=== PATIENT | male | born 1985 | race Two or more races ===

== ENCOUNTER 2019-06-17 17:26 | Emergency (ER) | payer MEDICAID ==
[2019-06-17 17:33] VITALS: BP 134/92
--- NOTE | 2019-06-17 17:43 | ED Physician Documentation ---
PD HPI SKIN - Stated complaint Stated Complaint: BUMPS ON BACK OF HEAD/PX - Chief complaint Chief Complaint: Wound - History obtained from History obtained from: Patient - History of Present Illness Timing - onset: How many weeks ago (1-2) Timing - duration: Weeks (couple weeks of some bumps on back of neck, that has popped open and gets some thicker material or green pus out of them. But more come back and has had more pain in the area the past 2-3 days. No general body rash nor sores.) Timing - details: Gradual onset, Still present, Waxing and waning Location: Scalp, Neck (back of neck and up to lower occipital scalp.) Quality / character: Painful, Discolored (red), Swelling, Draining Associated symptoms: No: Fever, Myalgias, Headache, N/V/D Similar symptoms before: Has not had sx before Recently seen: Not recently seen Review of Systems Constitutional: denies: Fever, Chills, Myalgias Nose: denies: Rhinorrhea / runny nose, Congestion Throat: denies: Sore throat Respiratory: denies: Cough Skin: reports: Lesions Neurologic: denies: Altered mental status, Headache PD PAST MEDICAL HISTORY - Past Medical History Cardiovascular: None Respiratory: None Neuro: None Endocrine/Autoimmune: None - Present Medications Home Medications: Ambulatory Orders Medication Instructions Recorded Confirmed Chlorhexidine Gluconate [Hibiclens] 15 ml TP DAILY #236 ml 06/17/19 Doxycycline Hyclate 100 mg PO BID #15 capsule 06/17/19 Mupirocin 1 applic TP TID #15 g 06/17/19 Naproxen 500 mg PO BID #20 tablet 06/17/19 Tramadol HCl 50 mg PO Q6H PRN #15 tablet 06/17/19 - Allergies Allergies/Adverse Reactions: Allergies Allergy/AdvReac Type Severity Reaction Status Date / Time No Known Drug Allergies Allergy Verified 06/17/19 17:29 PD ED PE NORMAL - Vitals Vital signs reviewed: Yes - General General: Alert and oriented X 3, No acute distress, Well developed/nourished - HEENT HEENT: Pharynx benign - Neck Neck: Supple, no meningeal sign, No adenopathy - Cardiac Cardiac: RRR, No murmur - Derm Derm: Normal color, Warm and dry, Other (back of neck and lower occipital area with multiple small bumps less than 1 cm size without any fluctuance. There is mild crusting from some. Redness of the skin. ) Results - Vitals Vitals: Vital Signs - 24 hr 06/17/19 06/17/19 17:29 18:44 Temperature 36.5 C Heart Rate 89 100 Respiratory 16 Rate Blood Pressure 134/92 H O2 Saturation 89 L 98 Oxygen O2 Source Room air PD MEDICAL DECISION MAKING - ED course Complexity details: considered differential (looks likely infected cysts and now local staph extension to several adjacent glands. ), d/w patient Departure - Departure Disposition: 01 Home, Self Care Clinical Impression: Infected sebaceous cyst, Neck pain Condition: Stable Record reviewed to determine appropriate education?: Yes Instructions: ED Cyst Sebaceous Infec Abx Tx Prescriptions: Chlorhexidine Gluconate [Hibiclens] 15 ml TP DAILY #236 ml Doxycycline Hyclate 100 mg PO BID #15 capsule Mupirocin 1 applic TP TID #15 g Naproxen 500 mg PO BID #20 tablet Tramadol HCl 50 mg PO Q6H PRN #15 tablet PRN Reason: Pain Comments: This looks like some infected sweat glands in the back of the neck. Cleanse with soap and water or the antiseptic chlorhexidine as a shampoo type wash and on the skin once or twice daily. Use mupirocin antibiotic ointment to the infection area twice daily. Doxycycline oral antibiotic twice daily for a week. For the neck pain generally, use naproxen anti-inflammatory twice daily and add Tylenol or tramadol if needed for pains. Follow-up with the primary care as soon as you are able to obtain one. Recheck if not improving with the neck infection over the next several days to week. Discharge Date/Time: 06/17/19 18:44
[2019-06-17] MEDS ORDERED: METHOCARBAMOL 500 MG TABLET PO STA (18:12)
[2019-06-17] MEDS ORDERED: NAPROXEN 250 MG TABLET PO STA (18:12)
[2019-06-17] MEDS ORDERED: MUPIROCIN 2% OINT 1 GM TOP STA (18:12)
[2019-06-17] MEDS ORDERED: DOXYCYCLINE 100 MG TABLET PO STA (18:12)
[2019-06-17] MEDS ORDERED: traMADol 50 MG TABLET PO STA (18:13)
== END 2019-06-17 18:44 | disposition home or self-care (01) ==
LOC: ED 17:26
DX: L72.3 Sebaceous cyst (principal); B99.8 Other infectious disease; M54.2 Cervicalgia
CPT/HCPCS: 99284; A9270

== ENCOUNTER 2019-07-02 19:20 | Emergency (ER) | payer MEDICAID ==
--- NOTE | 2019-07-02 21:06 | ED Physician Documentation ---
PD HPI URI - Stated complaint Stated Complaint: CONGESTION/SORE THROAT - Chief complaint Chief Complaint: Heent - History obtained from History obtained from: Patient - History of Present Illness Timing - onset: How many days ago (2-3) Timing duration: Days (2-3) Timing details: Gradual onset, Still present Associated symptoms: Nasal congestion, Sore throat, Dry cough. No: Fever, Hemoptysis, Dyspnea Contributing factors: No: Sick contact, Immunocompromised, COPD / asthma Similar symptoms before: Diagnosis (URI) Review of Systems Constitutional: reports: Chills, Myalgias. denies: Fever Nose: reports: Rhinorrhea / runny nose, Sinus pressure / pain Throat: reports: Sore throat Respiratory: reports: Cough GI: denies: Nausea, Vomiting, Diarrhea Skin: denies: Rash Neurologic: denies: Altered mental status, Headache PD PAST MEDICAL HISTORY - Past Medical History Past Medical History: No Cardiovascular: None Respiratory: None Neuro: None Endocrine/Autoimmune: None GI: None : None HEENT: None Psych: None Musculoskeletal: None Derm: None - Past Surgical History Past Surgical History: Yes - Present Medications Home Medications: Ambulatory Orders Medication Instructions Recorded Confirmed Chlorhexidine Gluconate [Hibiclens] 15 ml TP DAILY #236 ml 06/17/19 Doxycycline Hyclate 100 mg PO BID #15 capsule 06/17/19 Mupirocin 1 applic TP TID #15 g 06/17/19 Naproxen 500 mg PO BID #20 tablet 06/17/19 Tramadol HCl 50 mg PO Q6H PRN #15 tablet 06/17/19 Benzonatate [Tessalon Perle] 100 mg PO TID PRN #30 capsule 07/02/19 Cetirizine [ZyrTEC] 10 mg PO DAILY #15 tablet 07/02/19 dexAMETHasone [Decadron] 4 mg PO DAILY #5 tablet 07/02/19 guaiFENesin/DEXTROMETHORPHAN 10 ml PO Q6H PRN #240 ml 07/02/19 [Robitussin Dm] - Allergies Allergies/Adverse Reactions: Allergies Allergy/AdvReac Type Severity Reaction Status Date / Time No Known Drug Allergies Allergy Verified 07/02/19 19:23 - Social History Does the pt smoke?: Yes Smoking Status: Current every day smoker Does the pt drink ETOH?: No Does the pt have substance abuse?: No - Immunizations Immunizations are current?: Yes - POLST Patient has POLST: No PD ED PE NORMAL - Vitals Vital signs reviewed: Yes - General General: Alert and oriented X 3, No acute distress, Well developed/nourished - HEENT HEENT: Ears normal, Moist mucous membranes, Pharynx benign - Neck Neck: Supple, no meningeal sign, No adenopathy - Cardiac Cardiac: RRR, No murmur - Respiratory Respiratory: Clear bilaterally - Abdomen Abdomen: Soft, Non tender - Back Back: No CVA TTP - Derm Derm: Normal color, Warm and dry - Neuro Neuro: Alert and oriented X 3, No motor deficit, Normal speech Results - Vitals Vitals: Vital Signs - 24 hr 07/02/19 07/02/19 07/02/19 19:23 20:55 21:39 Temperature 36.9 C Heart Rate 87 Respiratory 15 16 16 Rate O2 Saturation 98 Oxygen O2 Source Room air - Labs Labs: Microbiology 07/02/19 20:00 Group A Strep Throat Culture - Preliminary Throat CULTURE IN PROGRESS. RESULTS TO FOLLOW. Laboratory Tests 07/02/19 20:00 Group A Strep Rapid Negative PD MEDICAL DECISION MAKING - ED course Complexity details: considered differential, d/w patient Departure - Departure Disposition: 01 Home, Self Care Clinical Impression: Upper respiratory infection Qualifiers: URI type: unspecified URI Qualified Code(s): J06.9 - Acute upper respiratory infection, unspecified Condition: Stable Record reviewed to determine appropriate education?: Yes Instructions: ED Upper Resp Infec No Abx Tx Prescriptions: Benzonatate [Tessalon Perle] 100 mg PO TID PRN #30 capsule PRN Reason: Cough Cetirizine [ZyrTEC] 10 mg PO DAILY #15 tablet dexAMETHasone [Decadron] 4 mg PO DAILY #5 tablet guaiFENesin/DEXTROMETHORPHAN [Robitussin Dm] 10 ml PO Q6H PRN #240 ml PRN Reason: Cough Comments: Stay well-hydrated. Tylenol ibuprofen if needed for fevers or pains. Use Decadron steroid daily to decrease inflammation of the sinuses and airways. Cetirizine antihistamine daily to decrease congestion. Tessalon for cough suppression and add cough medicine if needed. This should decrease symptoms over the next several days. This sounds like a viral illness and I would anticipate about a week's worth of illness but improving with above medications. Discharge Date/Time: 07/02/19 21:58
[2019-07-02] MEDS ORDERED: BENZONATATE 100 MG CAPSULE PO STA (21:32)
[2019-07-02] MEDS ORDERED: CETIRIZINE 10 MG TABLET PO STA (21:32)
[2019-07-02] MEDS ORDERED: DEXAMETHASONE 10 MG/ML VIAL PO STA (21:32)
[2019-07-02] MEDS ORDERED: ACETAMINOPHEN 325 MG TABLET PO STA (21:32)
[2019-07-02] MEDS ORDERED: CHERRY SYRUP 10 ML UDC PO ONE (21:32)
== END 2019-07-02 21:58 | disposition home or self-care (01) ==
LOC: ED 19:20
DX: J06.9 Acute upper respiratory infection, unspecified (principal); F17.200 Nicotine dependence, unspecified, uncomplicated
CPT/HCPCS: 87070; 87430; 99283; A9270

== ENCOUNTER 2019-12-15 16:48 | Emergency (ER) | payer BC, MEDICAID ==
[2019-12-15 16:55] VITALS: BP 150/100
--- NOTE | 2019-12-15 17:06 | ED Physician Documentation ---
PD HPI HEENT - Stated complaint Stated Complaint: SOA, COUGH, SORE THROAT - Chief complaint Chief Complaint: Resp - History obtained from History obtained from: Patient - History of Present Illness Timing - onset: Other (34-year-old gentleman just quit smoking a few days ago. He has been sick for about a week with minimally productive cough and some chest heaviness as well as a sore throat especially when he coughs. His and children have been sick with a similar syndrome. No fevers. No recent travel. No sick contacts other than his family.) Review of Systems Constitutional: denies: Fever, Chills Nose: denies: Rhinorrhea / runny nose Throat: reports: Sore throat Respiratory: reports: Cough. denies: Dyspnea GI: denies: Abdominal Pain PD PAST MEDICAL HISTORY - Past Medical History Cardiovascular: None Respiratory: None Neuro: None Endocrine/Autoimmune: None GI: None : None HEENT: None Psych: None Musculoskeletal: None Derm: None - Past Surgical History Past Surgical History: Yes - Present Medications Home Medications: Ambulatory Orders Medication Instructions Recorded Confirmed Chlorhexidine Gluconate [Hibiclens] 15 ml TP DAILY #236 ml 06/17/19 Doxycycline Hyclate 100 mg PO BID #15 capsule 06/17/19 Mupirocin 1 applic TP TID #15 g 06/17/19 Naproxen 500 mg PO BID #20 tablet 06/17/19 Tramadol HCl 50 mg PO Q6H PRN #15 tablet 06/17/19 Benzonatate [Tessalon Perle] 100 mg PO TID PRN #30 capsule 07/02/19 Cetirizine [ZyrTEC] 10 mg PO DAILY #15 tablet 07/02/19 dexAMETHasone [Decadron] 4 mg PO DAILY #5 tablet 07/02/19 guaiFENesin/DEXTROMETHORPHAN 10 ml PO Q6H PRN #240 ml 07/02/19 [Robitussin Dm] Albuterol Sulf [Ventolin Hfa 1 - 2 puffs INH Q4HR PRN #1 inhaler 12/15/19 Inhaler] Guaifenesin/Pseudoephedrne HCl 1 each PO BID PRN #20 tab.er.12h 12/15/19 [Mucinex D ER 600-60 mg Tablet] guaiFENesin/CODEINE [Robitussin AC] 5 - 10 ml PO Q6H PRN #120 ml 12/15/19 - Allergies Allergies/Adverse Reactions: Allergies Allergy/AdvReac Type Severity Reaction Status Date / Time No Known Drug Allergies Allergy Verified 12/15/19 16:51 - Social History Does the pt smoke?: Yes Smoking Status: Current every day smoker Does the pt drink ETOH?: No Does the pt have substance abuse?: No - Immunizations Immunizations are current?: Yes - POLST Patient has POLST: No PD ED PE NORMAL - Vitals Vital signs reviewed: Yes - General General: Alert and oriented X 3, No acute distress - HEENT HEENT: Ears normal, Pharynx benign - Neck Neck: Supple, no meningeal sign, No bony TTP - Cardiac Cardiac: RRR, No murmur - Respiratory Respiratory: No respiratory distress, Clear bilaterally - Abdomen Abdomen: Non tender - Back Back: No CVA TTP, No spinal TTP - Derm Derm: Normal color, Warm and dry - Extremities Extremities: No edema, No calf tenderness / cord - Neuro Neuro: Alert and oriented X 3, Normal speech Results - Vitals Vitals: Vital Signs - 24 hr 12/15/19 16:52 Temperature 36.8 C Heart Rate 85 Respiratory 14 Rate Blood Pressure 150/100 H O2 Saturation 99 Oxygen O2 Source Room air PD MEDICAL DECISION MAKING - ED course ED course: 34-year-old gentleman presents with what sounds like viral respiratory illness, potentially viral bronchitis. Conservative care was advised. Coronavirus is considered but does not fit current guidelines for testing for same. Departure - Departure Disposition: 01 Home, Self Care Clinical Impression: Upper respiratory infection Qualifiers: URI type: unspecified viral URI Qualified Code(s): J06.9 - Acute upper respiratory infection, unspecified Condition: Good Record reviewed to determine appropriate education?: Yes Instructions: ED Viral Syndrome Prescriptions: Albuterol Sulf [Ventolin Hfa Inhaler] 1 - 2 puffs INH Q4HR PRN #1 inhaler PRN Reason: Shortness Of Air/Wheezing guaiFENesin/CODEINE [Robitussin AC] 5 - 10 ml PO Q6H PRN #120 ml PRN Reason: Cough Guaifenesin/Pseudoephedrne HCl [Mucinex D ER 600-60 mg Tablet] 1 each PO BID PRN #20 tab.er.12h PRN Reason: congestion Comments: Call your doctor to arrange a follow-up appointment, make the next available appointment. In the interim, return anytime if worse or if new symptoms develop. Your blood pressure was elevated today on check into the emergency department. This does not mean that you have hypertension, it is a common phenomenon to come to the emergency department and have elevated blood pressure. I recommend that you see your primary care physician within the week to have it rechecked when you are feeling better. Forms: Activity restrictions
== END 2019-12-15 17:13 | disposition home or self-care (01) ==
LOC: ED 16:48
DX: J06.9 Acute upper respiratory infection, unspecified (principal); R03.0 Elevated blood-pressure reading, without diagnosis of hypertension; Z87.891 Personal history of nicotine dependence
CPT/HCPCS: 99283; 99284

== ENCOUNTER 2020-09-07 20:00 | Outpatient (CLI) | payer BC, MEDICAID | END 2020-09-07 20:01 | disposition critical access hospital (66) | LOC: EMS 20:00 | PROVIDERS: ATTEND Surgery | DX: R07.9 Chest pain, unspecified (principal) | CPT/HCPCS: A0425; A0427 ==

== ENCOUNTER 2020-09-07 20:21 | Emergency (ER) | payer BC, MEDICAID ==
[2020-09-07 20:28] VITALS: BP 148/86
--- NOTE | 2020-09-07 20:34 | ED Physician Documentation ---
PD HPI CHEST PAIN - Stated complaint Stated Complaint: CHEST PX - Chief complaint Chief Complaint: Cardiac - History obtained from History obtained from: Patient - History of Present Illness Timing - onset: How many weeks ago (2) Timing - details: Intermittant Pain level now: 7 Quality: Pain Location: Left chest Radiation: Left upper extremity Improved by: Nothing Worsened by: Other (no inciting nor exacerbating factors) Associated symptoms: Shortness of air (with episodes). No: Diaphoresis, Nausea, Vomiting, Feeling faint / dizzy Similar symptoms before: Has not had sx before Recently seen: Clinic (sent from clinic where he presented this evening; advised to come to ED, as clinic was closing) - Additional information Additional information: c/o 2 weeks of episodic left chest pain that radiates to LUE and associated with dyspnea. no apparent inciting, exacerbating, ameliorating factors. Review of Systems Constitutional: reports: Reviewed and negative Cardiac: reports: Chest pain / pressure. denies: Palpitations, Pedal edema, Calf pain Respiratory: reports: Dyspnea. denies: Cough GI: reports: Reviewed and negative Musculoskeletal: denies: Extremity swelling PD PAST MEDICAL HISTORY - Past Medical History Cardiovascular: None Respiratory: None Neuro: None Endocrine/Autoimmune: None GI: None : None HEENT: None Psych: None Musculoskeletal: None Derm: None - Past Surgical History Past Surgical History: Yes - Present Medications Home Medications: Ambulatory Orders Medication Instructions Recorded Confirmed No Known Home Medications 09/07/20 09/07/20 - Allergies Allergies/Adverse Reactions: Allergies Allergy/AdvReac Type Severity Reaction Status Date / Time No Known Drug Allergies Allergy Verified 09/07/20 20:29 - Social History Does the pt smoke?: Yes Smoking Status: Current every day smoker Does the pt drink ETOH?: No Does the pt have substance abuse?: No - Immunizations Immunizations are current?: Yes - POLST Patient has POLST: No PD ED PE NORMAL - Vitals Vital signs reviewed: Yes - General General: Alert and oriented X 3, No acute distress, Well developed/nourished - HEENT HEENT: Moist mucous membranes - Neck Neck: Supple, no meningeal sign - Cardiac Cardiac: RRR, No murmur, No gallop, No rub - Respiratory Respiratory: No respiratory distress, Clear bilaterally - Abdomen Abdomen: Soft, Non tender - Extremities Extremities: No edema Results - Vitals Vitals: Vital Signs - 24 hr 12/08/20 12/08/20 20:25 20:29 Temperature 36.7 C 36.7 C Heart Rate 77 77 Respiratory 17 17 Rate Blood Pressure 148/86 H 148/86 H O2 Saturation 99 99 Oxygen O2 Source Room air - EKG (time done) No standard instances Rate: Rate (enter#) (75) Rhythm: NSR [place]: Normal Intervals: Normal [place] QRS: Normal Ischemia: ST elevation c/w repol - Labs Labs: Laboratory Tests 09/07/20 09/07/20 09/07/20 20:56 20:56 20:56 WBC 11.3 H RBC 5.74 Hgb 16.4 Hct 48.2 MCV 84.0 MCH 28.6 MCHC 34.0 RDW 13.4 Plt Count 351 MPV 8.7 Neut # (Auto) 7.4 H Lymph # (Auto) 2.8 [place] # (Auto) 0.8 Eos # (Auto) 0.1 Baso # (Auto) 0.1 Absolute Nucleated RBC 0.00 Nucleated RBC % 0.0 Sodium 135 Potassium 3.7 Chloride 101 Carbon Dioxide 24 Anion Gap 10.0 BUN 26 H Creatinine 0.9 Estimated GFR (MDRD) 97 Glucose 95 Calcium 9.9 Total Bilirubin 0.7 AST 31 ALT 40 Alkaline Phosphatase 91 Troponin I High Sens 7.8 Total Protein 8.2 Albumin 5.0 Globulin 3.2 Albumin/Globulin Ratio 1.6 Lipase 49 - Rads (name of study) chest xray Radiology: Prelim report reviewed, See rad report PD MEDICAL DECISION MAKING - ED course Complexity details: reviewed results, re-evaluated patient, considered differential, d/w patient ED course: unremarkable w/u including EKG (ST elevation is s/o repol), CXR, blood work including negative high-sensitivity troponin. All PERC criteria are negative. Departure - Departure Disposition: 01 Home, Self Care Clinical Impression: Chest pain Condition: Good Instructions: ED Chest Pain Atypical Unkn Cause, ED Hypertension Poss Comments: Follow up with your primary care provider. Further testing might be warranted for your chest pains. You also should be reevaluated for the high blood pressure readings you had in the emergency department. Forms: Activity restrictions Discharge Date/Time: 09/07/20 22:15
[2020-09-07 21:14] LABS: BASOPHILS # (AUTO) 0.1 10^3/uL (0.0-0.1); BASOPHILS % (AUTO) 1.1 %; EOSINOPHILS # (AUTO) 0.1 10^3/uL (0.0-0.7); EOSINOPHILS % (AUTO) 1.1 %; HGB - HEMOGLOBIN 16.4 g/dL (14.0-18.0); LYMPHOCYTES # (AUTO) 2.8 10^3/uL (1.5-3.5); LYMPHOCYTES % (AUTO) 24.9 %; MEAN CORPUSCULAR HEMOGLOBIN 28.6 pg (27.0-31.0); MEAN PLATELET VOLUME 8.7 fL (7.4-11.4); MONOCYTES # (AUTO) 0.8 10^3/uL (0.0-1.0); MONOCYTES % (AUTO) 7.3 %; NEUTROPHILS # (AUTO) 7.4 10^3/uL (1.5-6.6); NEUTROPHILS % (AUTO) 64.8 %; PLT - PLATELET COUNT 351 10^3/uL (130-450); RED BLOOD COUNT 5.74 10^6/uL (4.70-6.10); RED CELL DISTRIBUTION WIDTH 13.4 % (12.0-15.0); WHITE BLOOD COUNT 11.3 x10^3/uL (4.8-10.8)
--- NOTE | 2020-09-07 21:19 | XRAY Report ---
PROCEDURE: Chest 2 View X-Ray INDICATIONS: chest pain TECHNIQUE: 2 view(s) of the chest. COMPARISON: None. FINDINGS: Surgical changes and devices: None. Lungs and pleura: No pleural effusions or pneumothorax. Lungs are clear. Mediastinum: Mediastinal contours are normal. Heart size is normal. Bones and chest wall: No suspicious bony abnormalities. Soft tissues appear unremarkable. IMPRESSION: No acute cardiopulmonary abnormality Reviewed by: Arnaud Carter on 09/07/2020 9:18 PM [facility] Approved by: Arnaud Carter on 09/07/2020 9:18 PM [facility] Station ID: [id number]
[2020-09-07 21:36] LABS: ALBUMIN/GLOBULIN RATIO 1.6 (1.0-2.2); BILIRUBIN,TOTAL 0.7 mg/dL (0.2-1.0); CALCIUM 9.9 mg/dL (8.5-10.3); CREATININE 0.9 mg/dL (0.6-1.2); TOTAL PROTEIN 8.2 g/dL (6.7-8.2)
== END 2020-09-07 22:15 | disposition home or self-care (01) ==
LOC: EDUNIT# → ED 20:21
DX: R07.9 Chest pain, unspecified (principal); F17.200 Nicotine dependence, unspecified, uncomplicated
CPT/HCPCS: 36415; 80053; 83690; 84484; 85025; 93005; 99284

== ENCOUNTER 2020-09-08 08:00 | Outpatient (CLI) | payer BC, MEDICAID | END 2020-09-08 23:59 | disposition home or self-care (01) | LOC: LAB.N 08:00 | PROVIDERS: ATTEND Physician Assistant Medical | DX: F41.8 Other specified anxiety disorders (principal) | CPT/HCPCS: 36415; 84443 ==

== ENCOUNTER 2020-09-10 13:00 | Outpatient (CLI) | payer BC | END 2020-09-10 13:01 | disposition critical access hospital (66) | LOC: EMS 13:00 | PROVIDERS: ATTEND Surgery | DX: R07.9 Chest pain, unspecified (principal); M79.602 Pain in left arm | CPT/HCPCS: A0425; A0429 ==

== ENCOUNTER 2020-09-10 13:21 | Emergency (ER) | payer BC ==
[2020-09-10] MEDS ORDERED: KETOROLAC 30 MG/ML VIAL IVP STA (13:50)
--- NOTE | 2020-09-10 13:57 | ED Physician Documentation ---
History of Present Illness - Stated complaint Stated Complaint: CHEST PX - Chief complaint Chief Complaint: Cardiac - History obtained from History obtained from: Patient - History of Present Illness Timing: How many weeks ago (3) Pain level max: 10 Pain level now: 6 - Additonal information Additional information: 34-year-old male presents to the emergency department left-sided chest pain for 3 weeks. He states it has been constant. 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 Worse with movement, deep breathing. Better with rest. He states that he has a "opiate" for anxiety as well as other anxiety pills. He states he took them without relief today. No fever. No cough. He is a smoker. Also uses marijuana. He describes the pain as someone stabbing him repeatedly with a knife and twisting. Review of Systems Ten Systems: 10 systems reviewed and negative Constitutional: denies: Fever, Chills Nose: denies: Rhinorrhea / runny nose, Congestion Throat: denies: Sore throat Cardiac: denies: Palpitations, Calf pain Respiratory: denies: Dyspnea, Cough GI: denies: Abdominal Pain, Nausea, Vomiting, Diarrhea Skin: denies: Rash Musculoskeletal: denies: Neck pain, Back pain Neurologic: denies: Headache PD PAST MEDICAL HISTORY - Past Medical History Cardiovascular: None Respiratory: None Neuro: None Endocrine/Autoimmune: None GI: None : None HEENT: None Psych: None Musculoskeletal: None Derm: None - Past Surgical History Past Surgical History: Yes - Present Medications Home Medications: Ambulatory Orders Medication Instructions Recorded Confirmed Anxiety Med From Last Er Visit 0 mg 09/10/20 Cyclobenzaprine [Flexeril] 10 mg PO TID PRN #20 tablet 09/10/20 Ibuprofen [Motrin] 800 mg PO Q8H PRN #30 tablet 09/10/20 PARoxetine [Paxil] 10 mg PO DAILY 09/10/20 09/10/20 - Allergies Allergies/Adverse Reactions: Allergies Allergy/AdvReac Type Severity Reaction Status Date / Time No Known Drug Allergies Allergy Verified 09/10/20 13:34 - Social History Does the pt smoke?: Yes Smoking Status: Current every day smoker Does the pt drink ETOH?: No Does the pt have substance abuse?: No - Immunizations Immunizations are current?: Yes - POLST Patient has POLST: No PD ED PE NORMAL - Vitals Vital signs reviewed: Yes - General General: Alert and oriented X 3, No acute distress, Well developed/nourished - HEENT HEENT: Moist mucous membranes - Neck Neck: Supple, no meningeal sign - Cardiac Cardiac: RRR, No murmur, Strong equal pulses - Respiratory Respiratory: No respiratory distress, Clear bilaterally, Other (Tender to palpation over the left anterior chest wall, upper chest. This reproduces his pain. No crepitus.) - Abdomen Abdomen: Soft, Non tender, Non distended - Derm Derm: Warm and dry - Extremities Extremities: No edema, No calf tenderness / cord - Neuro Neuro: Alert and oriented X 3 - Psych Psych: Normal mood, Normal affect Results - Vitals Vitals: Vital Signs - 24 hr 09/10/20 09/10/20 09/10/20 13:23 14:30 16:05 Temperature 36.7 C 36.4 C L Heart Rate 66 64 68 Respiratory 16 16 18 Rate Blood Pressure 135/92 H 154/97 H 147/98 H O2 Saturation 98 98 97 Oxygen O2 Source Room air - EKG (time done) 1328 Rate: Rate (enter#) (65) Rhythm: NSR [place]: RAD Intervals: Normal [place] QRS: LVH Ischemia: ST elevation c/w repol - Labs Labs: Laboratory Tests 09/10/20 09/10/20 09/10/20 15:00 15:00 15:00 WBC 8.2 RBC 5.21 Hgb 14.9 Hct 43.8 MCV 84.1 MCH 28.6 MCHC 34.0 RDW 13.1 Plt Count 298 MPV 8.4 Neut # (Auto) 5.6 Lymph # (Auto) 1.9 [place] # (Auto) 0.5 Eos # (Auto) 0.0 Baso # (Auto) 0.1 Absolute Nucleated RBC 0.00 Nucleated RBC % 0.0 Sodium 137 Potassium 3.6 Chloride 102 Carbon Dioxide 24 Anion Gap 11.0 BUN 20 Creatinine 0.8 Estimated GFR (MDRD) 111 Glucose 94 Calcium 9.4 Total Bilirubin 0.8 AST 30 ALT 49 Alkaline Phosphatase 82 Troponin I High Sens 2.9 Total Protein 7.4 Albumin 4.5 Globulin 2.9 Albumin/Globulin Ratio 1.6 Lipase 44 - Rads (name of study) CT angio chest Radiology: Prelim report reviewed, EMP read contemporaneously, See rad report cxr Radiology: Prelim report reviewed, EMP read contemporaneously, See rad report PD MEDICAL DECISION MAKING - ED course Complexity details: reviewed old records, reviewed results, re-evaluated patient , considered differential, d/w patient ED course: 34-year-old male with what appears to be chest wall pain. Reproducible with palpation. Mild cardiomegaly on CT scan and x-ray. No significant change on x- ray from prior. Echocardiogram is not available today. Patient was comfortable following up with his doctor for this. Normal white blood cell count, normal high-sensitivity troponin. No pericardial effusion. No evidence of myocarditis. Will place on pain medication and have him follow-up with his doctor. Patient counseled regarding signs and symptoms for which I believe and urgent re-evaluation would be necessary. Patient with good understanding of and agreement to plan and is comfortable going home at this time This document was made in part using voice recognition software. While efforts are made to proofread this document, sound alike and grammatical errors may occur. 1. Suboptimal contrast opacification of the segmental and subsegmental pulmonary arteries. 2. No large central pulmonary embolus. Small pulmonary emboli involving the segmental or subsegmental pulmonary arteries is not completely excluded by this study. 3. Cardiomegaly has developed in the interval since prior exam. cxr IMPRESSION: No acute pulmonary process Departure - Departure Disposition: 01 Home, Self Care Clinical Impression: Chest pain Qualifiers: Chest pain type: unspecified Qualified Code(s): R07.9 - Chest pain, unspecified Condition: Good Instructions: ED Strain Chest Wall Follow-Up: your,doctor in 1 week [Other] Prescriptions: Cyclobenzaprine [Flexeril] 10 mg PO TID PRN #20 tablet PRN Reason: Spasms Ibuprofen [Motrin] 800 mg PO Q8H PRN #30 tablet PRN Reason: PAIN &/OR FEVER Comments: The cause of your symptoms is unclear today, but may be related to a strain of your chest wall. You should have an outpatient echocardiogram and stress test with your doctor. You can start on a baby aspirin daily as well. Return if you worsen.
[2020-09-10] MEDS ORDERED: IOVERSOL 320 100 ML VIAL IVP ONE ×2 (14:16→15:45)
[2020-09-10 15:06] LABS: BASOPHILS # (AUTO) 0.1 10^3/uL (0.0-0.1); BASOPHILS % (AUTO) 0.9 %; EOSINOPHILS % (AUTO) 0.5 %; HGB - HEMOGLOBIN 14.9 g/dL (14.0-18.0); LYMPHOCYTES # (AUTO) 1.9 10^3/uL (1.5-3.5); LYMPHOCYTES % (AUTO) 23.4 %; MEAN CORPUSCULAR HEMOGLOBIN 28.6 pg (27.0-31.0); MEAN CORPUSCULAR VOLUME 84.1 fL (80.0-94.0); MEAN PLATELET VOLUME 8.4 fL (7.4-11.4); MONOCYTES # (AUTO) 0.5 10^3/uL (0.0-1.0); MONOCYTES % (AUTO) 6.6 %; NEUTROPHILS # (AUTO) 5.6 10^3/uL (1.5-6.6); NEUTROPHILS % (AUTO) 68.4 %; PLT - PLATELET COUNT 298 10^3/uL (130-450); RED BLOOD COUNT 5.21 10^6/uL (4.70-6.10); RED CELL DISTRIBUTION WIDTH 13.1 % (12.0-15.0); WHITE BLOOD COUNT 8.2 x10^3/uL (4.8-10.8)
[2020-09-10 15:18] LABS: ALBUMIN 4.5 g/dL (3.2-5.5); ALBUMIN/GLOBULIN RATIO 1.6 (1.0-2.2); BILIRUBIN,TOTAL 0.8 mg/dL (0.2-1.0); CALCIUM 9.4 mg/dL (8.5-10.3); CREATININE 0.8 mg/dL (0.6-1.2); TOTAL PROTEIN 7.4 g/dL (6.7-8.2)
--- NOTE | 2020-09-10 16:17 | CT Report ---
PROCEDURE: ANGIO CHEST W/WO INDICATIONS: L side pleuritic chest pain CONTRAST: IV CONTRAST: Optiray 320 ml: 80 PO CONTRAST: *NO PO CONTRAST TECHNIQUE: After the administration of intravenous contrast, 2 mm thick sections acquired from the pulmonary api naheed to the posterior costophrenic angles. 3-dimensional maximum intensity projection (MIP) coronal a nd sagittal reformats were then acquired through the thorax. For radiation dose reduction, the follow ing was used: automated exposure control, adjustment of mA and/or kV according to patient size. COMPARISON: 2 view chest x-ray 09/07/2020 FINDINGS: Image quality: Limited by suboptimal contrast opacification of the segmental and subsegmental pulmona ry arteries. Pulmonary arteries: Pulmonary arteries are normal in size, and demonstrate no intraluminal filling d efects to suggest central pulmonary embolism. Lungs and pleura: Lungs are clear. No pleural effusions or pneumothorax. Central and peripheral ai rways are patent. Mediastinum: Heart is enlarged without pericardial effusion. No mediastinal or hilar adenopathy. T horacic aorta is normal in caliber and enhancement. Esophagus is normal in caliber, without hiatal h ernia. Bones and chest wall: No suspicious bony lesions. Ribs and thoracic spine appear intact throughout. Spine degenerative disc disease and facet arthropathy are noted. Partially visualized cervical spine fixation hardware. The thyroid is normal. No axillary or supraclavicular adenopathy. Abdomen: Visualized upper abdominal solid organs appear normal in the early arterial phase of enhanc ement. IMPRESSION: 1. Suboptimal contrast opacification of the segmental and subsegmental pulmonary arteries. 2. No large central pulmonary embolus. Small pulmonary emboli involving the segmental or subsegmental pulmonary arteries is not completely excluded by this study. 3. Cardiomegaly has developed in the interval since prior exam. Reviewed by: Cristina Yeung MD, PhD on 09/10/2020 4:16 PM PST Approved by: Cristina Yeung MD, PhD on 09/10/2020 4:16 PM PST Station ID: [id number]
--- NOTE | 2020-09-10 16:44 | XRAY Report ---
PROCEDURE: Chest 2 View X-Ray INDICATIONS: chest pain, possible cardiomegaly? TECHNIQUE: 2 view(s) of the chest. COMPARISON: Chest CT 09/10/2020, chest x-ray 09/07/2020 FINDINGS: Surgical changes and devices: None. Lungs and pleura: No pleural effusions or pneumothorax. Lungs are clear. Mediastinum: Mediastinal contours are normal. Heart size is mildly enlarged. Bones and chest wall: No suspicious bony abnormalities. Soft tissues appear unremarkable. IMPRESSION: No acute pulmonary process. Reviewed by: Paradise Guerrier MD on 09/10/2020 4:43 PM PST Approved by: Paradise Guerrier MD on 09/10/2020 4:43 PM PST Station ID: [id number]
[2020-09-10 17:13] VITALS: BP 152/91
== END 2020-09-10 17:14 | disposition home or self-care (01) ==
LOC: EDUNIT# → ED 13:21
DX: R07.9 Chest pain, unspecified (principal); I51.7 Cardiomegaly; F17.200 Nicotine dependence, unspecified, uncomplicated
CPT/HCPCS: 36415; 71046; 71275; 80053; 83690; 84484; 85025; 93005; 96374; 99284; Q9967

== ENCOUNTER 2020-09-15 19:20 | Outpatient (CLI) | payer BC | END 2020-09-15 19:21 | disposition EMS.NT | LOC: EMS 19:20 | PROVIDERS: ATTEND Surgery | DX: R07.89 Other chest pain (principal); R42 Dizziness and giddiness ==

== ENCOUNTER 2020-09-17 08:00 | Outpatient (CLI) | payer BC ==
[2020-09-17 12:17] LABS: BASOPHILS # (AUTO) 0.1 10^3/uL (0.0-0.1); BASOPHILS % (AUTO) 1.4 %; EOSINOPHILS # (AUTO) 0.4 10^3/uL (0.0-0.7); HGB - HEMOGLOBIN 16.9 g/dL (14.0-18.0); LYMPHOCYTES # (AUTO) 2.5 10^3/uL (1.5-3.5); LYMPHOCYTES % (AUTO) 32.2 %; MEAN CORPUSCULAR HEMOGLOBIN 28.5 pg (27.0-31.0); MEAN CORPUSCULAR VOLUME 86.5 fL (80.0-94.0); MEAN PLATELET VOLUME 8.8 fL (7.4-11.4); MONOCYTES # (AUTO) 0.6 10^3/uL (0.0-1.0); MONOCYTES % (AUTO) 7.3 %; NEUTROPHILS # (AUTO) 4.1 10^3/uL (1.5-6.6); NEUTROPHILS % (AUTO) 53.2 %; PLT - PLATELET COUNT 335 10^3/uL (130-450); RED BLOOD COUNT 5.92 10^6/uL (4.70-6.10); RED CELL DISTRIBUTION WIDTH 13.2 % (12.0-15.0); WHITE BLOOD COUNT 7.6 x10^3/uL (4.8-10.8)
[2020-09-17 14:44] LABS: BUN - BLOOD UREA NITROGEN 26 mg/dL (6-20); CALCIUM 9.7 mg/dL (8.5-10.3); CARBON DIOXIDE - CO2 27 mmol/L (21-32); CHLORIDE 97 mmol/L (101-111); CHOL/HDL RATIO 5.5 (<5.0); CHOLESTEROL 231 mg/dL; CRP - C-REACTIVE PROTEIN 1.2 mg/dL (0-1.0); GLUCOSE 74 mg/dL (70-100); HDL CHOLESTEROL 42 mg/dL; LDL CHOLESTEROL,CALCULATED 126 mg/dL; SODIUM 137 mmol/L (135-145); VLDL CHOLESTEROL 63 mg/dL
[2020-09-17 15:19] LABS: FREE T4 (FREE THYROXINE) 0.99 ng/dL (0.58-1.64)
== END 2020-09-17 23:59 ==
LOC: LAB.WCP 08:00
PROVIDERS: ATTEND Internal Medicine
DX: R07.89 Other chest pain (principal)
CPT/HCPCS: 36415; 80048; 80061; 83721; 84439; 84443; 85025; 85379; 86140

== ENCOUNTER 2020-09-23 18:28 | Outpatient (CLI) | payer BC | END 2020-09-23 18:29 | disposition home or self-care (01) | LOC: COV 18:28 | PROVIDERS: ATTEND Family Medicine | DX: Z20.828 Contact with and (suspected) exposure to other viral communicable diseases (principal) ==

== ENCOUNTER 2020-10-05 12:19 | Outpatient (CLI) | payer BC ==
--- NOTE | 2020-10-05 15:16 | CARDIAC PROCEDURE NOTE ---
DATE OF SERVICE: 10/05/2020 Physician: Lottie Moffett MD INDICATION: Chest pain, atypical, and newly diagnosed hypertension. CARDIAC RISK FACTORS: Male gender, hypertension, smoker who only recently quit, elevated cholesterol. PROCEDURE: After signing informed consent, the patient underwent a David- protocol treadmill stress test with nuclear myocardial perfusion imaging. RESTING HEART RATE: 61. PEAK HEART RATE: 160 (85% predicted maximum heart rate for age). RESTING BLOOD PRESSURE: 139/90. PEAK BLOOD PRESSURE: 203/86. The patient exercised for 10 minutes and 11 seconds on a David-protocol treadmill stress test. He achieved a peak heart rate of 160 (85% PMHR) and 12.1 METs. The patient had mild shortness of breath and rated his perceived exertion at 14/20 on the Corky scale at peak. Oxygen saturation was 97%-99% on room air throughout the test. The patient described getting his typical left upper anterior chest pain, which he rated 4/10 at the second stage. At peak, the chest pain was rated 6/10. The chest pain diminished after exercise, but was still lingering slightly at 6-1/2 minutes. RESTING EKG: Normal sinus rhythm, vertical axis, otherwise within normal limits. EKG AT PEAK: No new ST-segment or T-wave changes develop. SUMMARY 1. Borderline abnormal EKG with a vertical axis seen. 2. Fair to good exercise tolerance. 3. Chest pain developed during exertion. 4. No ischemic changes occurred by EKG criteria. 5. Nuclear images were reported separately and showed: . IMPRESSION: Negative stress test for coronary ischemia. RECOMMENDATIONS: Evaluate for gastric etiology, given that the same symptom occurs when he lies on his stomach to sleep. cc: Cam Draper MD TD: 10/05/2020 15:05 HERI
--- NOTE | 2020-10-06 15:19 | Nuclear Medicine Report ---
PROCEDURE: Rest and exercise myocardial perfusion SPECT with gated imaging and ejection fraction INDICATIONS: CHEST DISCOMFORT RADIOPHARMACEUTICAL: 17.2 mCi Tc-99m Myoview IV at rest and 47.1 mCi Tc-99m Myoview IV at peak exerc ise. [id number] was performed. TECHNIQUE: Radiopharmaceutical was injected at peak stress test, and also at rest. SPECT images wer e obtained. SPECT myocardial perfusion images were displayed in short axis, horizontal long axis, an d vertical long axis views. Gated images were reviewed using AutoQUANT software. COMPARISON: None available. FINDINGS: Raw data: There is good myocardial labeling by radiotracer. No significant motion artifacts. Lung- to-heart ratio is 0.33 (normal is less than 0.38 for tetrafosmin tracer). Left ventricle function: Gated images demonstrate normal left ventricle wall thickening. No segment al wall motion abnormality. No transient ischemic dilation; TID is 0.97 (normal less than 1.3). The left ventricle resting end-diastolic volume is normal. Left ventricle stress ejection fraction is 73 %; normal values are above 45%. Myocardial perfusion: There is normal distribution of activity in the left and right ventricular abel cardium. No fixed or reversible perfusion defects. IMPRESSION: 1. Normal myocardial perfusion images. No perfusion defect to suggest myocardial ischemia or infarct. 2. Normal left ventricular volume and systolic function. 3. Please correlate with stress EKG result. PQRS ATTESTATIONS: Measure 322 - Is this imaging test primarily performed on a low-risk surgery patient for preoperative evaluation within 30 days preceding their low-risk non-cardiac surgery? Low-risk surgery is defined as cardiac or myocardial infarction less than 1%, including (but not limited to) endoscopic pr ocedures, superficial procedures, cataract surgery, and excisional breast surgery: Answer: No Measure 323 - Is this imaging test performed primarily for the monitoring of an asymptomatic patient who had percutaneous coronary intervention on the visit date or within 2 years of the visit date? An swer: No Measure 324 - Is this imaging test performed primarily for the initial detection and risk assessment on an asymptomatic, low coronary heart disease patient? Low CHD risk definition = clinicians should consider the maximum number of available patient factors used to estimate risk based on [place] (A TP III criteria), typically age, gender, diabetes, smoking status, and use of blood pressure medicati on, and integrate age appropriate estimates for missing elements, such as LDL or standard blood press ure. Answer: No Reviewed by: Casie Montes MD on 10/06/2020 3:18 PM PST Approved by: Casie Montes MD on 10/06/2020 3:18 PM PST Station ID: [id number]
== END 2020-10-05 12:20 | disposition home or self-care (01) ==
LOC: DI 12:19
PROVIDERS: ATTEND Internal Medicine
DX: R07.89 Other chest pain (principal); I10 Essential (primary) hypertension; E78.00 Pure hypercholesterolemia, unspecified; Z87.891 Personal history of nicotine dependence
CPT/HCPCS: 78452; 93017; A9500

== ENCOUNTER 2020-11-25 07:32 | Outpatient (CLI) | payer BC, MEDICAID ==
--- NOTE | 2020-11-25 14:55 | XRAY Report ---
PROCEDURE: Ribs w/PA Chest LT INDICATIONS: CHEST DISCOMFORT, ATYPICAL TECHNIQUE: 3 views of the left ribs were acquired, along with a single view chest. COMPARISON: Chest x-ray 09/10/2020 FINDINGS: Surgical changes and devices: None. Bones and chest wall: No fractures or dislocations. No suspicious bony lesions. Overlying soft tis sues appear unremarkable. Lungs and pleura: No pleural effusions or pneumothorax. Lungs appear clear. Mediastinum: Mediastinal contours appear normal. Heart size is mildly enlarged. IMPRESSION: No visualized acute fracture or dislocation. However, occult injury cannot be excluded. Recommend teagan rt interval imaging follow-up in 7-10 days as clinically indicated for additional evaluation. Reviewed by: Paradise Guerrier MD on 11/25/2020 1:53 PM [facility] Approved by: Paradise Guerrier MD on 11/25/2020 1:53 PM [facility] Station ID: [id number]
== END 2020-11-25 07:33 | disposition home or self-care (01) ==
LOC: DI 07:32
PROVIDERS: ATTEND Internal Medicine
DX: R07.89 Other chest pain (principal)
CPT/HCPCS: 93306

== ENCOUNTER 2020-12-09 19:40 | Emergency (ER) | payer OTHER, BC, MEDICAID ==
[2020-12-09 20:24] LABS: BASOPHILS # (AUTO) 0.1 10^3/uL (0.0-0.1); BASOPHILS % (AUTO) 1.2 %; EOSINOPHILS # (AUTO) 0.2 10^3/uL (0.0-0.7); EOSINOPHILS % (AUTO) 1.4 %; HGB - HEMOGLOBIN 14.9 g/dL (14.0-18.0); LYMPHOCYTES # (AUTO) 2.7 10^3/uL (1.5-3.5); LYMPHOCYTES % (AUTO) 25.3 %; MEAN CORPUSCULAR HEMOGLOBIN 29.2 pg (27.0-31.0); MEAN CORPUSCULAR HGB CONC 34.7 g/dL (32.0-36.0); MEAN CORPUSCULAR VOLUME 84.3 fL (80.0-94.0); MEAN PLATELET VOLUME 8.5 fL (7.4-11.4); MONOCYTES # (AUTO) 0.8 10^3/uL (0.0-1.0); MONOCYTES % (AUTO) 7.3 %; NEUTROPHILS # (AUTO) 6.9 10^3/uL (1.5-6.6); NEUTROPHILS % (AUTO) 64.5 %; PLT - PLATELET COUNT 287 10^3/uL (130-450); RED CELL DISTRIBUTION WIDTH 13.2 % (12.0-15.0); WHITE BLOOD COUNT 10.7 x10^3/uL (4.8-10.8)
--- NOTE | 2020-12-09 20:30 | ED Physician Documentation ---
History of Present Illness - Stated complaint Stated Complaint: GLF/HEAD INJ - Chief complaint Chief Complaint: Trauma Hd/Nk - Additonal information Additional information: 35-year-old male presents emergency department after a syncopal episode while at work. 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 He did not know that he was going to faint and denies feeling ill prior to the event. He denies that he is ever fainted in the past. Review of Systems Constitutional: reports: Reviewed and negative Eyes: reports: Reviewed and negative Ears: reports: Reviewed and negative Nose: reports: Reviewed and negative Throat: reports: Reviewed and negative Cardiac: reports: Reviewed and negative Respiratory: denies: Dyspnea, Cough GI: denies: Abdominal Pain, Abdominal Swelling, Nausea, Vomiting : denies: Dysuria, Frequency Skin: reports: Abrasion (s) (left forehead). denies: Rash Musculoskeletal: reports: Reviewed and negative Neurologic: reports: Syncope. denies: Numbness, Difficulty speaking, Near syncope, Confused, Altered mental status, Headache PD PAST MEDICAL HISTORY - Past Medical History Cardiovascular: None Respiratory: None Neuro: None Endocrine/Autoimmune: None GI: None : None HEENT: None Psych: None Musculoskeletal: None Derm: None - Past Surgical History Past Surgical History: Yes - Present Medications Home Medications: Ambulatory Orders Medication Instructions Recorded Confirmed Cyclobenzaprine [Flexeril] 10 mg PO TID PRN #20 tablet 09/10/20 12/09/20 Ibuprofen [Motrin] 800 mg PO Q8H PRN #30 tablet 09/10/20 12/09/20 PARoxetine [Paxil] 10 mg PO DAILY 09/10/20 12/09/20 LORazepam [Ativan] 1 mg PO DAILY 12/09/20 12/09/20 - Allergies Allergies/Adverse Reactions: Allergies Allergy/AdvReac Type Severity Reaction Status Date / Time No Known Drug Allergies Allergy Verified 12/09/20 19:43 - Social History Does the pt smoke?: Yes Smoking Status: Current every day smoker Does the pt drink ETOH?: No Does the pt have substance abuse?: No - Immunizations Immunizations are current?: Yes - POLST Patient has POLST: No PD ED PE EXPANDED - General General: Alert, No acute distress, Well developed/nourished - HEENT HEENT: PERRL, Ears normal, Moist mucous membranes, Pharynx normal. No: Atraumatic (3 cm contusion/hematoma left forehead) - Neck Neck: Supple w/out meningeal sx, No tenderness. No: Adenopathy - Cardiac Cardiac: Regular Rate, Radial strong equal, Pedal strong equal. No: Murmur Present - Respiratory Respiratory: Clear to ausultation becca. No: Distress, Labored - Abdomen Abdomen: Normal Bowel sounds - Extremities Extremities: Normal. No: Deformity - Neuro Neuro: Alert and Oriented X 3, CNII-XII intact - GCS Eye Opening: Spontaneous Motor: Obeys Commands Verbal: Oriented Total: 15 Results - Vitals Vitals: Vital Signs - 24 hr 12/09/20 12/09/20 19:44 19:53 Temperature 37.0 C 37 C Heart Rate 72 72 Respiratory 18 18 Rate Blood Pressure 170/87 H 170/87 H O2 Saturation 100 100 Oxygen O2 Source Room air - EKG (time done) 2006 Rate: Rate (enter#) (67) Rhythm: NSR [place]: Normal Intervals: Normal [place] QRS: Normal Ischemia: ST elevation c/w repol Compare to prior EKG: Old EKG unavailable Computer interpretation: Agree with computer - Labs Labs: Laboratory Tests 12/09/20 12/09/20 12/09/20 20:17 20:17 20:17 WBC 10.7 RBC 5.10 Hgb 14.9 Hct 43.0 MCV 84.3 MCH 29.2 MCHC 34.7 RDW 13.2 Plt Count 287 MPV 8.5 Neut # (Auto) 6.9 H Lymph # (Auto) 2.7 Walker # (Auto) 0.8 Eos # (Auto) 0.2 Baso # (Auto) 0.1 Absolute Nucleated RBC 0.00 Nucleated RBC % 0.0 Sodium 134 L Potassium 3.4 L Chloride 100 L Carbon Dioxide 25 Anion Gap 9.0 BUN 27 H Creatinine 0.9 Estimated GFR (MDRD) 97 Glucose 122 H Calcium 9.1 Total Bilirubin 0.9 AST 37 ALT 37 Alkaline Phosphatase 77 Troponin I High Sens 2.9 Total Protein 7.5 Albumin 4.7 Globulin 2.8 Albumin/Globulin Ratio 1.7 Lipase 49 - Rads (name of study) CT head Radiology: Final report received (Contusion/hematoma without underlying calvarial fractures. CT head without acute intracranial abnormalities.) CXR Radiology: Final report received (Cardiopulmonary abnormalities.) PD MEDICAL DECISION MAKING - ED course Complexity details: reviewed results, re-evaluated patient, considered differential, d/w patient ED course: 35-year-old male presents to the emergency department after a syncopal event at work in which she works as a department store general manager and was walking with a backpack blower that weighs about 15 to 20 pounds. He does not recall feeling ill or feeling as though he was about to faint. He had a lapse in consciousness of just a few seconds. He presented here feeling well with normal mentation and no focal neuro deficits. He did have a rather large contusion on his left forehead. He did have a screening EKG which was unremarkable for age. Some ST elevation consistent with early repolarization. High-sensitivity troponin was unremarkable. Chest x-ray showed no acute focal opacities. Patient is PERC negative therefore I doubt a PE. Screening labs and electrolytes essentially normal with the exception of a mildly elevated BUN. I suspect that the cause of his syncope was likely dehydration with exertion. He was given 2 L of crystalloid here in the emergency department and will be discharged home. He is cleared to return to work fully on Sunday. Appropriate L&I paperwork completed Departure - Departure Disposition: Home, Self Care Clinical Impression: Dehydration, Syncope and collapse Condition: Stable Record reviewed to determine appropriate education?: Yes Instructions: ED Dehydration Ch Follow-Up: Cam Aponte MD [Primary Care Provider] - Comments: Cam you are cleared to return to full unrestricted duty at work 12/13/2020. You should only need to miss 1 day of work which is tomorrow afternoon. As we discussed I suspect that the cause of your fainting episode was mild dehydration. It is important that you stay well-hydrated at work. It is also important to discuss this ED visit with Dr. Aponte when you see him in follow- up next Sunday. He may want to consider further outpatient testing for evaluation of your syncope. However today your screening labs and EKG are all essentially normal with the exception of a mildly elevated BUN which is a marker of dehydration.
--- NOTE | 2020-12-09 20:33 | XRAY Report ---
PROCEDURE: Chest 1 View X-Ray INDICATIONS: Chest Pain TECHNIQUE: One view of the chest was acquired. COMPARISON: 11/25/2020 FINDINGS: Surgical changes and devices: Stable appearance of surgical hardware from prior ACDF. Lungs and pleura: No pleural effusions or pneumothorax. Lungs are clear. Mediastinum: Mediastinal contours appear normal. Heart size is normal. Bones and chest wall: No suspicious bony lesions. Overlying soft tissues appear unremarkable. IMPRESSION: Stable examination of the chest. No acute cardiopulmonary abnormalities. Reviewed by: Randolph Downing MD on 12/09/2020 8:32 PM PST Approved by: Randolph Downing MD on 12/09/2020 8:32 PM PST Station ID: [id number]
[2020-12-09 20:37] LABS: ALBUMIN 4.7 g/dL (3.2-5.5); ALBUMIN/GLOBULIN RATIO 1.7 (1.0-2.2); BILIRUBIN,TOTAL 0.9 mg/dL (0.2-1.0); CALCIUM 9.1 mg/dL (8.5-10.3); CREATININE 0.9 mg/dL (0.6-1.2); POTASSIUM 3.4 mmol/L (3.5-5.0); TOTAL PROTEIN 7.5 g/dL (6.7-8.2)
[2020-12-09] MEDS ORDERED: SODIUM CHLORIDE 0.9% 1,000 ML IV STA ×2 (20:59→21:37)
--- NOTE | 2020-12-09 21:21 | CT Report ---
PROCEDURE: HEAD WO INDICATIONS: syncope/contusion TECHNIQUE: Noncontrast 4.5 mm thick angled axial sections acquired from the foramen magnum to the vertex. For r adiation dose reduction, the following was used: automated exposure control, adjustment of mA and/or kV according to patient size. COMPARISON: None. FINDINGS: Image quality: Excellent. CSF spaces: Basal cisterns are patent. No extra-axial fluid collections. Prominent CSF space versu s small arachnoid cyst in the posterior fossa. No significant mass effect upon the adjacent cerebellu m. Ventricles are normal in size and shape. Brain: No midline shift. No intracranial masses or hemorrhage. James-white matter interface is norm al. Skull and face: Left frontal scalp contusion/hematoma. Calvarium and visualized facial bones are inta ct, without suspicious lesions. Sinuses: Visualized sinuses and mastoids are clear. IMPRESSION: CT head without acute intracranial abnormalities. Left frontal scalp contusion/hematoma without underlying calvarial fractures. Reviewed by: Randolph Downing MD on 12/09/2020 9:19 PM PST Approved by: Randolph Downing MD on 12/09/2020 9:19 PM PST Station ID: [id number]
[2020-12-09 22:00] VITALS: BP 152/92
== END 2020-12-09 22:44 | disposition home or self-care (01) ==
LOC: ED 19:40
DX: S00.83XA Contusion of other part of head, initial encounter (principal); W19.XXXA Unspecified fall, initial encounter; Y93.H2 Activity, gardening and landscaping; Y99.0 Civilian activity done for income or pay; R55 Syncope and collapse; F17.200 Nicotine dependence, unspecified, uncomplicated
CPT/HCPCS: 1040M; 36415; 70450; 71045; 80053; 83690; 84484; 85025; 93005; 96360; 96361; 99283

== ENCOUNTER 2021-01-01 15:46 | Outpatient (CLI) | payer BC, MEDICAID ==
--- NOTE | 2021-01-01 18:28 | Ultrasound Report ---
PROCEDURE: Carotid Doppler Complete INDICATIONS: SYNCOPE TECHNIQUE: Color and pulse Doppler interrogation was performed of both carotid systems, with image documentation and velocity measurements. COMPARISON: None. FINDINGS: Right side: Brachial blood pressure: 143/90 mm Hg. Common carotid artery peak systolic velocity: 115 cm/sec. Internal carotid artery peak systolic velocity: 66.9 cm/sec. Internal carotid artery end diastolic velocity: 25 cm/sec. External carotid artery peak systolic velocity: 102.5 cm/sec. ICA/CCA peak systolic ratio: 0.6 . James scale imaging description: No significant atherosclerotic plaque is seen. Percent internal carotid artery stenosis: Normal . Vertebral artery: Flow direction is antegrade. Left side: Brachial blood pressure: 140/85 mm Hg. Common carotid artery peak systolic velocity: 109.3 cm/sec. Internal carotid artery peak systolic velocity: 101.5 cm/sec. Internal carotid artery end diastolic velocity: 48.1 cm/sec. External carotid artery peak systolic velocity: 109.3 cm/sec. ICA/CCA peak systolic ratio: 0.9 . James scale imaging description: Mild atherosclerotic plaques are noted in proximal to mid left inter nal carotid artery Percent internal carotid artery stenosis: Less than 50% . Vertebral artery: Flow direction is antegrade. IMPRESSION: 1. Less than 50% stenosis involving proximal to mid left internal carotid artery. 2. No significant atherosclerotic disease is seen in right internal carotid artery. No hemodynamicall y significant stenosis. The estimate of stenosis included in the report of the imaging study was calculated using the NASCET method Reviewed by: Diallo Sethi MD on 01/01/2021 6:27 PM PDT Approved by: Diallo Sethi MD on 01/01/2021 6:27 PM PDT Station ID: [id number]
--- OUTSIDE RECORDS SUMMARY | 2021-01-05 02:34 | EXTERNAL MEDICAL SUMMARY RPT | Continuity of Care Document ---
:1985 Demographics Phone Unavailable Preferred Language Unknown Marital Status Unknown Confucianist Affiliation Unknown Race Unknown Ethnic Group Unknown Author Organization [facility] Address [address] [place] [address] Phone Social History date description facility [phone]
== END 2021-01-01 15:47 | disposition home or self-care (01) ==
LOC: DI 15:46
PROVIDERS: ATTEND Internal Medicine
DX: R55 Syncope and collapse (principal)
CPT/HCPCS: 93880

== ENCOUNTER 2021-01-02 21:55 | Emergency (ER) | payer BC, MEDICAID ==
--- NOTE | 2021-01-02 22:22 | ED Physician Documentation ---
PD HPI CHEST PAIN - Stated complaint Stated Complaint: CP - Chief complaint Chief Complaint: Cardiac - History obtained from History obtained from: Patient - History of Present Illness Timing - onset: Today (recurrent episodic chest pain onset this morning. Has had similar in the past without Dx as yet. Has had ECHO, stress test, and recent carotid doppler (few days ago without result yet).) Timing - onset during: Rest Timing - duration: Hours (has had some discomfort since earlier this evening.) Timing - details: Abrupt onset, Still present Quality: Tightness, Aching, Indigestion Location: Substernal, Epigastric Radiation: No: Back, Abdominal Improved by: No: Rest Worsened by: No: Exertion, Inspiration, Movement, Palpation Associated symptoms: Nausea. No: Shortness of air, Diaphoresis, Palpitations Similar symptoms before: No diagnosis Recently seen: Clinic, Emergency Dept (had CT chest recently and ECHO/nuclear s tress in Nov.) Review of Systems Constitutional: denies: Fever, Chills Nose: denies: Rhinorrhea / runny nose, Congestion Throat: denies: Sore throat Cardiac: reports: Chest pain / pressure. denies: Palpitations, Pedal edema, Calf pain Respiratory: denies: Cough GI: reports: Nausea. denies: Vomiting, Diarrhea Skin: denies: Rash, Lesions PD PAST MEDICAL HISTORY - Past Medical History Cardiovascular: None Respiratory: None Neuro: None Endocrine/Autoimmune: None GI: None : None HEENT: None Psych: None Musculoskeletal: None Derm: None - Past Surgical History Past Surgical History: Yes - Present Medications Home Medications: Ambulatory Orders Medication Instructions Recorded Confirmed Lisinopril [Zestril] 10 mg PO 01/02/21 Meloxicam [Mobic] 1 tablet PO DAILY PRN 01/02/21 01/02/21 Mirtazapine [Remeron] 7.5 - 15 mg PO 01/02/21 Omeprazole Magnesium 20 mg PO 01/02/21 Lidocaine Viscous 2% [Xylocaine 5 ml PO Q4H PRN #100 ml 01/03/21 Viscous 2%] Pantoprazole Sodium 20 mg PO DAILY 30 Days #30 01/03/21 Sucralfate [Carafate] 1 gm PO BID #40 tablet 01/03/21 - Allergies Allergies/Adverse Reactions: Allergies Allergy/AdvReac Type Severity Reaction Status Date / Time No Known Drug Allergies Allergy Verified 12/09/20 19:43 - Social History Does the pt smoke?: Yes Smoking Status: Current every day smoker Does the pt drink ETOH?: No Does the pt have substance abuse?: No - Immunizations Immunizations are current?: Yes - POLST Patient has POLST: No PD ED PE NORMAL - Vitals Vital signs reviewed: Yes - General General: Alert and oriented X 3, No acute distress, Well developed/nourished - HEENT HEENT: Pharynx benign - Neck Neck: Supple, no meningeal sign, No adenopathy - Cardiac Cardiac: RRR, No murmur - Respiratory Respiratory: Clear bilaterally - Abdomen Abdomen: Soft, Non tender - Back Back: No CVA TTP - Derm Derm: Normal color, Warm and dry - Extremities Extremities: No deformity, No tenderness to palpate, No edema, No calf tendern ess / cord - Neuro Neuro: Alert and oriented X 3, No motor deficit, Normal speech Results - Vitals Vitals: Vital Signs - 24 hr 01/02/21 01/02/21 01/03/21 21:57 22:10 00:06 Temperature 36.1 C L Heart Rate 82 52 L Respiratory 20 16 Rate Blood Pressure 170/101 H 132/83 H Blood Pressure 151/109 H [Left] Blood Pressure 164/100 H [Right] O2 Saturation 96 95 Oxygen O2 Source Room air - EKG (time done) 21:59 Rate: Rate (enter#) (66) Rhythm: NSR [place]: Normal Intervals: Normal [place] QRS: Normal Ischemia: Normal ST segments. No: ST elevation c/w ischemia, ST depression Compare to prior EKG: Unchanged from prior EKG - Rads (name of study) chest xray Radiology: Prelim report reviewed (no acute provess), See rad report PD MEDICAL DECISION MAKING - ED course Complexity details: reviewed old records (myocardial perfusion stress test, ECHO, CT chest, and recent carotid doppler tests. Has plan for EGD upcoming. ), re-evaluated patient (improved with GI cocktail. ) Departure - Departure Disposition: 01 Home, Self Care Clinical Impression: Recurrent chest pain Reflux esophagitis Qualifiers: Esophagitis bleeding: without hemorrhage Qualified Code(s): K21.00 - Gastro- esophageal reflux disease with esophagitis, without bleeding Condition: Stable Record reviewed to determine appropriate education?: Yes Instructions: ED GERD Follow-Up: Cam Aponte MD [Primary Care Provider] - Prescriptions: Sucralfate [Carafate] 1 gm PO BID #40 tablet Pantoprazole Sodium 20 mg PO DAILY 30 Days #30 Lidocaine Viscous 2% [Xylocaine Viscous 2%] 5 ml PO Q4H PRN #100 ml PRN Reason: Pain Comments: I believe your chest pain is coming from irritation of the esophagus from refluxing of acid from the stomach. Use pantoprazole acid reducing medication daily for the next month or 2. Also use sucralfate which coats the esophagus and stomach twice daily, after breakfast in the morning and also before bedtime. For symptoms, also use antacid such as Maalox or Mylanta periodically through the day. You can combine some of the lidocaine with it if needed for discomfort. Follow-up with your primary care regarding further evaluation and the plan for the upper endoscopy to better evaluate. Your recent ultrasound of the neck did not show any significant abnormalities.. Discharge Date/Time: 01/03/21 00:38
[2021-01-02] MEDS ORDERED: LORazepam 1 MG TABLET PO STA (22:50)
[2021-01-02] MEDS ORDERED: MAG HYDROX/AL HYDROX/SIMETH 30 ML UDC PO STA (22:50)
[2021-01-02] MEDS ORDERED: LIDOCAINE VISCOUS 2% 15 ML UDC MM STA (22:50)
[2021-01-02] MEDS ORDERED: FAMOTIDINE 20 MG TABLET PO STA (22:50)
[2021-01-03 00:07] VITALS: BP 132/83
--- NOTE | 2021-01-03 08:06 | XRAY Report ---
PROCEDURE: Chest 1 View X-Ray INDICATIONS: chest pain TECHNIQUE: One view of the chest was acquired. COMPARISON: Single view chest 12/09/2020 FINDINGS: Surgical changes and devices: None. Lungs and pleura: No pleural effusions or pneumothorax. Lungs are clear considering reduced inspira tory volume. Mediastinum: Mediastinal contours appear normal. Heart size is normal. Bones and chest wall: No suspicious bony lesions. Overlying soft tissues appear unremarkable. IMPRESSION: Metallic marker over left mid chest showing area of maximal chest pain. No abnormality seen over the lungs, or mediastinal structures to explain chest pain. Note is made of mid to low cervical anterior fusion plate partially visualized. Reduced inspiratory volume. Reviewed by: Bladimir Steward MD on 01/03/2021 8:05 AM PDT Approved by: Bladimir Steward MD on 01/03/2021 8:05 AM PDT Station ID: [id number]
--- OUTSIDE RECORDS SUMMARY | 2021-01-05 02:48 | EXTERNAL MEDICAL SUMMARY RPT | Continuity of Care Document ---
:1985 Demographics Phone Unavailable Preferred Language Unknown Marital Status Unknown Pentecostal Affiliation Unknown Race Unknown Ethnic Group Unknown Author Organization [facility] Address [address] [place] [address] Phone Social History date description facility [phone]
== END 2021-01-03 00:38 | disposition home or self-care (01) ==
LOC: ED 21:55
DX: K21.00 Gastro-esophageal reflux disease with esophagitis, without bleeding (principal); R07.9 Chest pain, unspecified; F17.200 Nicotine dependence, unspecified, uncomplicated
CPT/HCPCS: 71045; 93005; 99283; 99284; A9270; J8499

== ENCOUNTER 2021-01-05 17:28 | Outpatient (CLI) | payer BC, MEDICAID | END 2021-01-05 23:59 | disposition home or self-care (01) | LOC: LAB.R 17:28 | PROVIDERS: ATTEND Family Medicine | DX: K52.9 Noninfective gastroenteritis and colitis, unspecified (principal) | CPT/HCPCS: 81599; 83630; 87045; 87046; 87329; 87427; 87493 ==

== ENCOUNTER 2021-02-04 08:00 | Outpatient (CLI) | payer BC, MEDICAID ==
[2021-02-04 18:46] LABS: THYROID STIMULATING HORMONE 1.83 uIU/mL (0.34-5.60)
[2021-02-04 18:48] LABS: FREE T4 (FREE THYROXINE) 0.78 ng/dL (0.58-1.64)
== END 2021-02-04 23:59 | disposition home or self-care (01) ==
LOC: LAB.WCP 08:00
PROVIDERS: ATTEND Internal Medicine
DX: R94.6 Abnormal results of thyroid function studies (principal)
CPT/HCPCS: 36415; 84439; 84443

== ENCOUNTER 2021-02-11 15:35 | Outpatient (CLI) | payer MEDICAID | END 2021-02-11 15:36 | disposition home or self-care (01) | LOC: COV 15:35 | PROVIDERS: ATTEND Surgery | DX: Z01.812 Encounter for preprocedural laboratory examination (principal); R10.13 Epigastric pain; R19.4 Change in bowel habit; Z20.822 Contact with and (suspected) exposure to COVID-19 ==

== ENCOUNTER 2021-02-14 06:48 | Day surgery (SDC) | payer MEDICAID ==
--- OUTSIDE RECORDS SUMMARY | 2021-02-14 06:51 | EXTERNAL MEDICAL SUMMARY RPT | Continuity of Care Document ---
:1985 Demographics Phone Unavailable Preferred Language Slovak Marital Status Unknown Moravian Affiliation Unknown Race Unknown Ethnic Group Unknown Author Organization [facility] Address [address] [phone] Phone Problems date description facility [id number] Chest pain, unspecified [facility]
[2021-02-14] MEDS ORDERED: LACTATED RINGERS 1,000 ML IV ONE ×2 (07:38→10:04)
--- NOTE | 2021-02-14 08:54 | ANESTHESIA ---
Pre-Anesthesia VS, & Labs - Diagnosis dyspepsia, change in bowel habits - Procedure upper and lower endoscopy Vital Signs: Temp Pulse Resp BP Pulse Ox 36.4 C L 70 18 137/93 H 99 02/14/21 07:00 02/14/21 07:00 02/14/21 07:00 02/14/21 07:00 02/14/21 07:00 Height: 5 ft 5 in Weight (kg): 84.3 kg Body Mass Index: 30.9 BMI Classification: Obese - NPO >8 hours Home Medications and Allergies Home Medications: Ambulatory Orders Sucralfate [Carafate] 1 tablet PO BID 02/14/21 Lisinopril [Zestril] 20 mg PO DAILY 01/02/21 Omeprazole Magnesium 20 mg PO DAILY 01/02/21 Sucralfate [Carafate] 1 tablet PO BID 02/14/21 Allergies/Adverse Reactions: Allergies Allergy/AdvReac Type Severity Reaction Status Date / Time No Known Drug Allergies Allergy Verified 12/09/20 19:43 Anes History & Medical History - Medical History Cardiovascular: reports: None Pulmonary: reports: None Gastrointestinal: reports: None Urinary: reports: None Neuro: reports: None Musculoskeletal: reports: None Endocrine/Autoimmune: reports: None Blood Disorders: reports: None Skin: reports: None Smoking Status: Former smoker (quit 2 months ago) Psychosocial: reports: Cannabis (daily smoking), Other (PTSD-triggers include large groups of people or shaking to wake up.) History of Cancer?: No - Surgical History Neurologic: reports: Other (ACDF) Orthopedic: reports: Other (Facial fracture) Exam General: Alert, Oriented x3, Cooperative, No acute distress Dental: WNL Mouth Openin Fingerbreadth Neck Mobility: Normal Mallampati classification: II Thyromental Distance: 4-6 cm Mental/Cognitive Status: Alert/Oriented X3, Normal for patient Plan Anesthesia Type: Total IV Consent for Procedure(s) Verified and Reviewed: Yes Code Status: Attempt Resuscitation ASA classification: 2-Mild systemic disease Is this case an emergency?: No
[2021-02-14] MEDS ORDERED: PROPOFOL 1000 MG/100 ML 1,000 MG/100 ML BOTTLE IV ONE (09:01)
[2021-02-14] MEDS ORDERED: LIDOCAINE-MPF 2% 5 ML VIAL ONE (09:02)
[2021-02-14 10:35] VITALS: BP 126/89
--- NOTE | 2021-02-14 11:20 | ANESTHESIA POST OP EVALUATION ---
Anesthesia Post Eval - Post Anesthesia Eval Vitals: Last Vital Signs Temp 36.3 C L 02/14/21 10:14 Pulse 76 02/14/21 10:34 Resp 15 02/14/21 10:34 BP 126/89 H 02/14/21 10:34 Pulse Ox 97 02/14/21 10:34 CV Function Including HR & BP: Stable Pain Control: Satisfactory Nausea & Vomiting: Negative Mental Status: Baseline Respiratory Status: Airway Patent Hydration Status: Satisfactory Anesthesia Complications: None
== END 2021-02-14 06:49 | disposition home or self-care (01) ==
LOC: SDS 06:48
PROVIDERS: ATTEND Surgery
PROC: 0DBB8ZX Excision of Ileum, Via Natural or Artificial Opening Endoscopic, Diagnostic (ICD-10-PCS; 2021-02-14)
PROC: 0DB98ZX Excision of Duodenum, Via Natural or Artificial Opening Endoscopic, Diagnostic (ICD-10-PCS; 2021-02-14)
PROC: 0DB78ZX Excision of Stomach, Pylorus, Via Natural or Artificial Opening Endoscopic, Diagnostic (ICD-10-PCS; 2021-02-14)
PROC: 0DB38ZX Excision of Lower Esophagus, Via Natural or Artificial Opening Endoscopic, Diagnostic (ICD-10-PCS; 2021-02-14)
PROC: 0DB48ZX Excision of Esophagogastric Junction, Via Natural or Artificial Opening Endoscopic, Diagnostic (ICD-10-PCS; 2021-02-14)
PROC: 0DBH8ZX Excision of Cecum, Via Natural or Artificial Opening Endoscopic, Diagnostic (ICD-10-PCS; principal; 2021-02-14 08:15)
PROC: 0DBN8ZZ Excision of Sigmoid Colon, Via Natural or Artificial Opening Endoscopic (ICD-10-PCS; 2021-02-14 08:15)
DX: R10.13 Epigastric pain (principal); R19.4 Change in bowel habit; R13.10 Dysphagia, unspecified; K64.8 Other hemorrhoids; K63.5 Polyp of colon; K20.90 Esophagitis, unspecified without bleeding; E66.9 Obesity, unspecified; Z68.30 Body mass index [BMI] 30.0-30.9, adult; Z87.891 Personal history of nicotine dependence
CPT/HCPCS: 43239; 45380; J7120

== ENCOUNTER 2021-05-20 13:10 | Outpatient (CLI) | payer MEDICAID ==
--- NOTE | 2021-05-20 15:08 | XRAY Report ---
PROCEDURE: Foot 3 View RT INDICATIONS: RIGHT FOOT JOINT PAIN TECHNIQUE: 3 views of the foot were acquired. COMPARISON: None FINDINGS: Bones: No fractures or dislocations. No suspicious bony lesions. Soft tissues: No tibiotalar joint effusion. Achilles tendon appears normal. IMPRESSION: No right foot fracture or dislocation. No finding to explain patient's symptoms. Reviewed by: Diallo Sethi MD on 05/20/2021 3:06 PM PDT Approved by: Diallo Sethi MD on 05/20/2021 3:06 PM PDT Station ID: [id number]
--- NOTE | 2021-05-20 15:54 | XRAY Report ---
PROCEDURE: Lumbar Spine Complete INDICATIONS: DDD L SPINE TECHNIQUE: 4 views of the lumbar spine were acquired. : Chest x-ray, 2 views, 09/10/2020. Chest CT 09/10/2020. FINDINGS: Bones: Based on chest x-ray and CT, there are 11 pairs of fully performed ribs. Rudimentary 12th pair ribs are noted, which is referred as T12. There are 4 [id number] vertebrae are present. There is normal bony alignment. No vertebral body compression fractures. No suspicious bony lesions. Oblique views: No pars defects. Soft tissues: Overlying bowel gas pattern is normal. No suspicious soft tissue calcifications. IMPRESSION: 1. 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 2. Otherwise no abnormalities. Reviewed by: Casie Montes MD on 05/20/2021 3:53 PM PDT Approved by: Casie Montes MD on 05/20/2021 3:53 PM PDT Station ID: [id number]
== END 2021-05-20 13:11 | disposition home or self-care (01) ==
LOC: DI.N 13:10
PROVIDERS: ATTEND Internal Medicine
DX: M51.36 Other intervertebral disc degeneration, lumbar region (principal); M79.671 Pain in right foot

== ENCOUNTER 2021-07-08 08:00 | Outpatient (CLI) | payer MEDICAID | END 2021-07-08 23:59 | disposition home or self-care (01) | LOC: LAB.N 08:00 | PROVIDERS: ATTEND Family Medicine | DX: J06.9 Acute upper respiratory infection, unspecified (principal); Z20.822 Contact with and (suspected) exposure to COVID-19 ==

== ENCOUNTER 2021-10-29 10:40 | Outpatient (CLI) | payer MEDICAID ==
--- NOTE | 2021-10-29 12:30 | XRAY Report ---
PROCEDURE: Wrist 3 View LT INDICATIONS: LEFT WRIST PAIN TECHNIQUE: 4 views of the wrist were acquired. COMPARISON: None FINDINGS: Bones: No fractures or dislocations. No suspicious bony lesions. Scaphoid view: Unremarkable Soft tissues: No suspicious soft tissue calcifications. IMPRESSION: Unremarkable left wrist radiographs Reviewed by: Shravan Villatoro MD on 10/29/2021 11:28 AM [facility] Approved by: Shravan Villatoro MD on 10/29/2021 11:28 AM [facility] Station ID: [id number]
== END 2021-10-29 23:59 | disposition home or self-care (01) ==
LOC: DI.N 10:40
PROVIDERS: ATTEND Family Medicine
DX: M25.532 Pain in left wrist (principal)

== ENCOUNTER 2021-12-22 19:44 | Emergency (ER) | payer MEDICAID ==
[2021-12-22 20:19] LABS: BASOPHILS # (AUTO) 0.1 10^3/uL (0.0-0.1); EOSINOPHILS % (AUTO) 0.3 %; HCT - HEMATOCRIT 46.4 % (42.0-52.0); HGB - HEMOGLOBIN 16.2 g/dL (14.0-18.0); LYMPHOCYTES # (AUTO) 1.8 10^3/uL (1.5-3.5); LYMPHOCYTES % (AUTO) 19.5 %; MEAN CORPUSCULAR HGB CONC 34.9 g/dL (32.0-36.0); MEAN CORPUSCULAR VOLUME 83.2 fL (80.0-94.0); MEAN PLATELET VOLUME 8.7 fL (7.4-11.4); MONOCYTES # (AUTO) 0.7 10^3/uL (0.0-1.0); MONOCYTES % (AUTO) 7.8 %; NEUTROPHILS # (AUTO) 6.6 10^3/uL (1.5-6.6); NEUTROPHILS % (AUTO) 71.1 %; PLT - PLATELET COUNT 307 10^3/uL (130-450); RED BLOOD COUNT 5.58 10^6/uL (4.70-6.10); RED CELL DISTRIBUTION WIDTH 13.1 % (12.0-15.0); WHITE BLOOD COUNT 9.3 x10^3/uL (4.8-10.8)
[2021-12-22] MEDS ORDERED: SUCRALFATE 1 GM/10 ML UDC PO STA (20:19)
[2021-12-22] MEDS ORDERED: MAG HYDROX/AL HYDROX/SIMETH 30 ML UDC PO STA (20:19)
[2021-12-22] MEDS ORDERED: KETOROLAC 60 MG/2 ML VIAL IM STA (20:19)
[2021-12-22] MEDS ORDERED: LIDOCAINE VISCOUS 2% 15 ML UDC MM STA (20:19)
--- NOTE | 2021-12-22 20:25 | XRAY Report ---
PROCEDURE: Chest 1 View X-Ray INDICATIONS: Chest Pain TECHNIQUE: One view of the chest was acquired. COMPARISON: Chest x-ray 01/02/2021 FINDINGS: Surgical changes and devices: None. Lungs and pleura: No pleural effusions or pneumothorax. Lungs are clear. Mediastinum: Mediastinal contours appear unchanged. Heart size is normal. Bones and chest wall: No suspicious bony lesions. Overlying soft tissues appear unremarkable. IMPRESSION: 1. No acute cardiopulmonary disease. Reviewed by: Rafa Mendez MD on 12/22/2021 8:23 PM PDT Approved by: Rafa Mendez MD on 12/22/2021 8:23 PM PDT Station ID: [id number]
[2021-12-22 20:36] LABS: ALBUMIN 5.2 g/dL (3.2-5.5); ALBUMIN/GLOBULIN RATIO 1.9 (1.0-2.2); BILIRUBIN,TOTAL 1.2 mg/dL (0.2-1.0); CALCIUM 9.6 mg/dL (8.5-10.3); CREATININE 0.9 mg/dL (0.6-1.2); POTASSIUM 4.1 mmol/L (3.5-5.0)
--- NOTE | 2021-12-22 20:48 | ED Physician Documentation ---
History of Present Illness - Stated complaint Stated Complaint: CHEST PX,HIGH BP - Chief complaint Chief Complaint: Cardiac - History obtained from History obtained from: Patient - History of Present Illness Timing: Today Pain level max: 8 Pain level now: 6 - Additonal information Additional information: 36-year-old male presents to the emergency department with left-sided chest pain today. Described as sharp and stabbing. Worse with movement, palpation, deep breathing. No recent illnesses. No cough or congestion. Has had similar symptoms in the past that resolved on their own. No recent travel. No leg swelling. No history of blood clots in the patient or the family. Patient does not smoke cigarettes. No history of young cardiac disease. He states that he does have a history of gastroesophageal reflux, that has felt similar in the past. Review of Systems Ten Systems: 10 systems reviewed and negative Constitutional: denies: Fever, Chills Nose: denies: Rhinorrhea / runny nose, Congestion Throat: denies: Sore throat Cardiac: denies: Palpitations, Calf pain Respiratory: denies: Dyspnea, Cough, Hemoptysis, Wheezing GI: denies: Abdominal Pain, Nausea, Vomiting, Diarrhea Skin: denies: Rash Musculoskeletal: denies: Neck pain, Back pain Neurologic: denies: Headache PD PAST MEDICAL HISTORY - Past Medical History Cardiovascular: None Respiratory: None Neuro: None Endocrine/Autoimmune: None GI: None : None HEENT: None Psych: None Musculoskeletal: None Derm: None - Past Surgical History Past Surgical History: Yes Neuro: Other (ACDF) - Present Medications Home Medications: Ambulatory Orders Medication Instructions Recorded Confirmed Lisinopril [Zestril] 20 mg PO DAILY 01/02/21 02/14/21 Omeprazole Magnesium 20 mg PO DAILY 01/02/21 02/14/21 Sucralfate [Carafate] 1 tablet PO BID 02/14/21 02/14/21 Meloxicam [Mobic] 15 mg PO DAILY PRN #20 tablet 12/22/21 - Allergies Allergies/Adverse Reactions: Allergies Allergy/AdvReac Type Severity Reaction Status Date / Time No Known Drug Allergies Allergy Verified 12/22/21 19:49 - Social History Does the pt smoke?: Yes Smoking Status: Former smoker (quit 2 months ago) Does the pt drink ETOH?: No Does the pt have substance abuse?: No - Immunizations Immunizations are current?: Yes - POLST Patient has POLST: No PD ED PE NORMAL - Vitals Vital signs reviewed: Yes - General General: Alert and oriented X 3, No acute distress, Well developed/nourished - HEENT HEENT: PERRL, Moist mucous membranes - Neck Neck: Supple, no meningeal sign - Cardiac Cardiac: RRR, No murmur, Strong equal pulses - Respiratory Respiratory: No respiratory distress, Clear bilaterally - Abdomen Abdomen: Soft, Non tender, Non distended - Derm Derm: Warm and dry - Extremities Extremities: No edema, No calf tenderness / cord - Neuro Neuro: Alert and oriented X 3 - Psych Psych: Normal mood, Normal affect - Free text exam Free text exam: Tender to palpation over the left anterior chest wall, reproduces the pain. No crepitus. No ecchymosis. Results - Vitals Vitals: Vital Signs - 24 hr 12/22/21 12/22/21 12/22/21 19:49 19:52 20:14 Temperature 36.7 C Heart Rate 77 80 62 Respiratory 20 16 Rate Blood Pressure 155/103 H 146/90 H O2 Saturation 98 99 100 12/22/21 21:12 Temperature Heart Rate 64 Respiratory 16 Rate Blood Pressure 128/80 O2 Saturation 100 Oxygen O2 Source Room air - EKG (time done) 1953 Rate: Rate (enter#) (64) Rhythm: NSR [place]: Normal Intervals: Normal NE QRS: Normal Ischemia: ST elevation c/w repol - Labs Labs: Laboratory Tests 12/22/21 12/22/21 12/22/21 20:14 20:14 20:14 WBC 9.3 RBC 5.58 Hgb 16.2 Hct 46.4 MCV 83.2 MCH 29.0 MCHC 34.9 RDW 13.1 Plt Count 307 MPV 8.7 Neut # (Auto) 6.6 Lymph # (Auto) 1.8 [place] # (Auto) 0.7 Eos # (Auto) 0.0 Baso # (Auto) 0.1 Absolute Nucleated RBC 0.00 Nucleated RBC % 0.0 Sodium 138 Potassium 4.1 Chloride 100 L Carbon Dioxide 24 Anion Gap 14.0 H BUN 20 Creatinine 0.9 Estimated GFR (MDRD) 96 Glucose 90 Calcium 9.6 Total Bilirubin 1.2 H AST 31 ALT 46 Alkaline Phosphatase 77 Troponin I High Sens < 2.3 L Total Protein 8.0 Albumin 5.2 Globulin 2.8 Albumin/Globulin Ratio 1.9 Lipase 52 H - Rads (name of study) Chest x-ray Radiology: Final report received, EMP read contemporaneously, See rad report (No acute abnormality) PD MEDICAL DECISION MAKING - ED course Complexity details: reviewed results, considered differential (No ST elevation GA, no aortic dissection, no PE, no tension pneumothorax, no aortic aneurysm), d/w patient ED course: Patient is well-appearing, nontoxic. Afebrile. No hypoxia. No respiratory distress. Neuro EKG findings that are acute. No significant lab abnormalities or chest x-ray abnormalities. No indication of PE clinically. Patient feels better after Toradol and GI cocktail. Possible pleurisy versus costochondritis. We will have him follow-up with his doctor for further care. Patient counseled regarding signs and symptoms for which I believe and urgent re-evaluation would be necessary. Patient with good understanding of and agreement to plan and is comfortable going home at this time This document was made in part using voice recognition software. While efforts are made to proofread this document, sound alike and grammatical errors may occur. Departure - Departure Disposition: Home, Self Care Clinical Impression: Chest pain Qualifiers: Chest pain type: unspecified Qualified Code(s): R07.9 - Chest pain, unspecified Condition: Good Instructions: ED Chest Pain Atypical Unkn Cause, ED Chest Pain Costochondritis, ED Chest Pain Pleurisy Follow-Up: Cam Aponte MD [Primary Care Provider] - Within 1 week Prescriptions: Meloxicam [Mobic] 15 mg PO DAILY PRN #20 tablet PRN Reason: pain Comments: The cause of your symptoms is unclear tonight. Please follow-up with your doctor for further care. Your EKG, laboratory testing and x-ray are normal tonight. Your prescriptions were sent to [facility]. Discharge Date/Time: 12/22/21 21:13
[2021-12-22 21:13] VITALS: BP 128/80
== END 2021-12-22 21:13 | disposition home or self-care (01) ==
LOC: ED 19:44
DX: R07.9 Chest pain, unspecified (principal); Z87.891 Personal history of nicotine dependence
CPT/HCPCS: 36415; 71045; 80053; 83690; 84484; 85025; 93005; 96372; 99284; A9270

== ENCOUNTER 2021-12-25 19:04 | Emergency (ER) | payer MEDICAID ==
[2021-12-25 19:32] LABS: VBG HCO3 26.5 mmol/L (23-28); VBG PCO2 47.6 mmHg (41-51); VBG PH 7.363 (7.31-7.41); VBG PO2 28.5 mmHg (25-47)
[2021-12-25 19:33] LABS: VBG BASE EXCESS 0.4 mmol/L (-2 - +2); VBG OXYGEN SATURATION 55.3 % (60-80); VBG TOTAL CO2 27.9 mmol/L (24-29)
[2021-12-25 19:35] LABS: BASOPHILS # (AUTO) 0.1 10^3/uL (0.0-0.1); BASOPHILS % (AUTO) 1.2 %; EOSINOPHILS # (AUTO) 0.1 10^3/uL (0.0-0.7); HCT - HEMATOCRIT 45.9 % (42.0-52.0); LYMPHOCYTES # (AUTO) 1.9 10^3/uL (1.5-3.5); LYMPHOCYTES % (AUTO) 23.6 %; MEAN CORPUSCULAR HEMOGLOBIN 29.1 pg (27.0-31.0); MEAN CORPUSCULAR HGB CONC 34.9 g/dL (32.0-36.0); MEAN CORPUSCULAR VOLUME 83.6 fL (80.0-94.0); MEAN PLATELET VOLUME 8.5 fL (7.4-11.4); MONOCYTES # (AUTO) 0.6 10^3/uL (0.0-1.0); MONOCYTES % (AUTO) 7.5 %; NEUTROPHILS # (AUTO) 5.4 10^3/uL (1.5-6.6); NEUTROPHILS % (AUTO) 66.5 %; PLT - PLATELET COUNT 326 10^3/uL (130-450); RED BLOOD COUNT 5.49 10^6/uL (4.70-6.10); RED CELL DISTRIBUTION WIDTH 13.1 % (12.0-15.0); WHITE BLOOD COUNT 8.1 x10^3/uL (4.8-10.8)
--- NOTE | 2021-12-25 19:39 | ED Physician Documentation ---
PD HPI CHEST PAIN - Stated complaint Stated Complaint: NAUSEA AND CHEST PX - Chief complaint Chief Complaint: Abd Pain - History obtained from History obtained from: Patient - Additional information Additional information: 36-year-old gentleman presents for evaluation of chest pain. Its been ongoing for about a week and generally progressive. It is worse in the mornings. Sharp pain in the left anterior chest that is worse especially when he hugs his children. Also raising his voice makes it worse. It also is worse with deep breathing but denies shortness of breath. No significant personal or family history of cardiac disease or DVT/PE noting that he does not know his biological father. He has a history of reflux in the past and is taking omeprazole for same. He is a former smoker and has hypertension. Those are his only identifiable cardiac risk factors. He was seen here a few days ago for the same with negative work-up but the symptoms have progressed since then. There is no radiation to the back. Review of Systems Ten Systems: 10 systems reviewed and negative Constitutional: denies: Fever, Chills Nose: denies: Rhinorrhea / runny nose, Congestion Cardiac: denies: Palpitations, Pedal edema, Calf pain Respiratory: denies: Dyspnea, Cough, Hemoptysis, Wheezing PD PAST MEDICAL HISTORY - Past Medical History Cardiovascular: None Respiratory: None Neuro: None Endocrine/Autoimmune: None GI: None : None HEENT: None Psych: None Musculoskeletal: None Derm: None - Past Surgical History Past Surgical History: Yes Neuro: Other (ACDF) - Present Medications Home Medications: Ambulatory Orders Medication Instructions Recorded Confirmed Lisinopril [Zestril] 20 mg PO DAILY 01/02/21 02/14/21 Omeprazole Magnesium 20 mg PO DAILY 01/02/21 02/14/21 Sucralfate [Carafate] 1 tablet PO BID 02/14/21 02/14/21 Meloxicam [Mobic] 15 mg PO DAILY PRN #20 tablet 12/22/21 Cyclobenzaprine [Flexeril] 10 mg PO TID PRN #20 tablet 12/25/21 Pantoprazole [Protonix] 1 tab ORAL DAILY 12/25/21 12/25/21 - Allergies Allergies/Adverse Reactions: Allergies Allergy/AdvReac Type Severity Reaction Status Date / Time No Known Drug Allergies Allergy Verified 12/22/21 19:49 - Social History Does the pt smoke?: Yes Smoking Status: Former smoker (quit 2 months ago) Does the pt drink ETOH?: No Does the pt have substance abuse?: No - Immunizations Immunizations are current?: Yes - POLST Patient has POLST: No PD ED PE NORMAL - Vitals Vital signs reviewed: Yes - General General: Alert and oriented X 3, Other (He appears slightly anxious) - HEENT HEENT: PERRL, EOMI - Neck Neck: Supple, no meningeal sign, No bony TTP - Cardiac Cardiac: RRR, No murmur - Respiratory Respiratory: No respiratory distress, Clear bilaterally, Other (Mild to moderate tenderness of the left anterior chest wall diffusely that reproduces his symptoms. No shingles rash.) - Abdomen Abdomen: Normal bowel sounds, Soft, Non tender - Back Back: No CVA TTP, No spinal TTP - Derm Derm: Normal color, Warm and dry - Extremities Extremities: No edema, No calf tenderness / cord - Neuro Neuro: Alert and oriented X 3, Normal speech Results - Vitals Vitals: Vital Signs - 24 hr 12/25/21 12/25/21 12/25/21 19:09 19:14 19:44 Temperature 36.1 C L 36.5 C Heart Rate 93 93 70 Respiratory 18 18 18 Rate Blood Pressure 160/104 H 160/104 H 144/94 H O2 Saturation 97 97 97 Oxygen O2 Source Room air - EKG (time done) 1925 Rate: Rate (enter#) (68) Rhythm: NSR [place]: Normal Intervals: Normal [place] QRS: Normal Ischemia: ST elevation c/w repol. No: ST elevation c/w ischemia, ST depression - Labs Labs: Laboratory Tests 12/25/21 12/25/21 12/25/21 19:25 19:25 19:25 WBC 8.1 RBC 5.49 Hgb 16.0 Hct 45.9 MCV 83.6 MCH 29.1 MCHC 34.9 RDW 13.1 Plt Count 326 MPV 8.5 Neut # (Auto) 5.4 Lymph # (Auto) 1.9 [place] # (Auto) 0.6 Eos # (Auto) 0.1 Baso # (Auto) 0.1 Absolute Nucleated RBC 0.00 Nucleated RBC % 0.0 VBG pH 7.363 VBG pCO2 47.6 VBG pO2 28.5 VBG HCO3 26.5 VBG Total CO2 27.9 VBG O2 Saturation 55.3 L VBG Base Excess 0.4 Sodium 138 Potassium 3.9 Chloride 99 L Carbon Dioxide 27 Anion Gap 12.0 BUN 18 Creatinine 1.1 Estimated GFR (MDRD) 76 L Glucose 77 Calcium 9.1 Total Bilirubin 0.9 AST 25 ALT 39 Alkaline Phosphatase 77 Troponin I High Sens Total Protein 7.6 Albumin 4.7 Globulin 2.9 Albumin/Globulin Ratio 1.6 Lipase 68 H 12/25/21 19:25 WBC RBC Hgb Hct MCV MCH MCHC RDW Plt Count MPV Neut # (Auto) Lymph # (Auto) [place] # (Auto) Eos # (Auto) Baso # (Auto) Absolute Nucleated RBC Nucleated RBC % VBG pH VBG pCO2 VBG pO2 VBG HCO3 VBG Total CO2 VBG O2 Saturation VBG Base Excess Sodium Potassium Chloride Carbon Dioxide Anion Gap BUN Creatinine Estimated GFR (MDRD) Glucose Calcium Total Bilirubin AST ALT Alkaline Phosphatase Troponin I High Sens < 2.3 L Total Protein Albumin Globulin Albumin/Globulin Ratio Lipase PD MEDICAL DECISION MAKING - ED course ED course: 36-year-old gentleman with reproducible left anterior chest pain. He has a his tory of GERD. This seems multifactorial, may be some GERD and muscular pain. There is some anxiety component to it to. His blood pressure which he was worried about came down with time and gentle reassurance. The patient and family were counseled as to the diagnosis and need for follow- up. I counseled the patient with regard to signs and symptoms that would necessitate an urgent reevaluation in the emergency department. They understand they are welcome to return at any time if worse or if not improving as expected. This document was made in part using voice recognition software. While efforts are made to proofread this documents, sound alike and grammatical errors may occur. Departure - Departure Disposition: 01 Home, Self Care Clinical Impression: Chest pain Qualifiers: Chest pain type: precordial pain Qualified Code(s): R07.2 - Precordial pain Condition: Good Record reviewed to determine appropriate education?: Yes Instructions: ED Strain Chest Wall Prescriptions: Cyclobenzaprine [Flexeril] 10 mg PO TID PRN #20 tablet PRN Reason: Spasms Comments: I sent your prescription to [facility] in [place]. As discussed, the pain you are having in your chest seems muscular, potentially in addition to some continued reflux. All of your heart testing continues to be negative. Return for new or worsening symptoms but talk with your doctor about referral for upper endoscopy. You mentioned how your hands are numb every morning and that goes away after you get up. Given your history of neck issues you could have a pinched nerve in your neck and talk with your doctor about this as well to.
[2021-12-25 19:46] LABS: ALBUMIN 4.7 g/dL (3.2-5.5); ALBUMIN/GLOBULIN RATIO 1.6 (1.0-2.2); BILIRUBIN,TOTAL 0.9 mg/dL (0.2-1.0); CALCIUM 9.1 mg/dL (8.5-10.3); CREATININE 1.1 mg/dL (0.6-1.2); POTASSIUM 3.9 mmol/L (3.5-5.0); TOTAL PROTEIN 7.6 g/dL (6.7-8.2)
[2021-12-25] MEDS: CYCLOBENZAPRINE 10 MG TABLET PO STA (20:28)
[2021-12-25 20:34] VITALS: BP 139/88
== END 2021-12-25 20:32 | disposition home or self-care (01) ==
LOC: ED 19:04
DX: R07.2 Precordial pain (principal); Z87.891 Personal history of nicotine dependence
CPT/HCPCS: 36415; 80053; 82803; 83690; 84484; 85025; 93005; 99282; 99284; A9270